=== PATIENT | female | born 1990 | race Caucasian/White ===

== ENCOUNTER 2017-03-17 15:04 | Inpatient (IN) | payer OTHER, SELFPAY | END 2017-03-17 15:05 | disposition home or self-care (01) | DRG 951 | LOC: WP 03-24 15:04 | PROVIDERS: Admitting Provider Obstetrics & Gynecology; Family Provider Family Medicine; PCP Family Medicine; Visit Provider Obstetrics & Gynecology | DX: Z00.00 Encounter for general adult medical examination without abnormal findings (principal) | CPT/HCPCS: 93460 ==